=== PATIENT | male | born 1955 | race Caucasian/White ===

== ENCOUNTER 2017-12-15 20:30 | Outpatient (CLI) | payer BC | END 2017-12-15 20:31 | disposition home or self-care (01) | LOC: SLEEPLAB 20:30 | PROVIDERS: ATTEND Family Medicine | DX: G25.81 Restless legs syndrome (principal); G47.33 Obstructive sleep apnea (adult) (pediatric); R53.83 Other fatigue; F41.9 Anxiety disorder, unspecified | CPT/HCPCS: 95810 ==

== ENCOUNTER 2018-02-04 20:30 | Outpatient (CLI) | payer BC | END 2018-02-04 20:31 | disposition home or self-care (01) | LOC: SLEEPLAB 20:30 | PROVIDERS: ATTEND Family Medicine | DX: G47.33 Obstructive sleep apnea (adult) (pediatric) (principal); G25.81 Restless legs syndrome; F41.9 Anxiety disorder, unspecified; E66.9 Obesity, unspecified; R53.83 Other fatigue | CPT/HCPCS: 95811 ==

== ENCOUNTER 2018-10-25 07:08 | Outpatient (CLI) | payer BC ==
--- NOTE | 2018-10-25 09:35 | MRI ---
MRI CERVICAL SPINE: Technique: Multiplanar, multisequence MRI images were obtained of the cervical spine. Indications: Osteoarthritis cervical spine. Neck pain. FINDINGS: Cervical vertebrae maintain normal height and alignment. Vertebral body signal appears normal. Loss o f disc space is noted at C5-6. The other disc spaces are maintained. No significant abnormality at C2 -3. C3-4: No significant abnormality. C4-5: Normal disc bulge and spondylosis. Bilateral foraminal encroachment due to facet and uncinate h ypertrophy. C5-6: Mild disc bulge and spondylosis efface the anterior subarachnoid space. There is no evidence of cord impingement. No significant foraminal stenosis. C6-7: Normal disc bulge and spondylosis. Anterior subarachnoid space is preserved. No significant for aminal stenosis. C7-T1: No significant abnormality. Cervical cord signal is normal. IMPRESSION: Mild degenerative changes of the cervical spine. Loss of disc space and mild posterior disc bulge and spondylosis noted at C5-6 as described. POS: INGRID
== END 2018-10-25 07:09 | disposition home or self-care (01) ==
LOC: BICMRI 07:08
PROVIDERS: ATTEND Orthopaedic Surgery Hand Surgery
DX: M48.02 Spinal stenosis, cervical region (principal); M47.812 Spondylosis without myelopathy or radiculopathy, cervical region; M50.222 Other cervical disc displacement at C5-C6 level
CPT/HCPCS: 72141

== ENCOUNTER 2020-03-16 14:58 | Emergency (ER) | payer BC ==
--- NOTE | 2020-03-16 16:17 | RAD ---
Radiograph left shoulder 3 views: 03/16/2020 HISTORY: 64-year-old male with acute traumatic left shoulder pain from fall FINDINGS: There is no fracture, dislocation, or subluxation. IMPRESSION: Negative.
--- NOTE | 2020-03-16 16:18 | RAD ---
Radiograph pelvis one view: 03/16/2020 HISTORY: 64-year-old male with acute, traumatic pelvic pain after fall FINDINGS: Pelvic ring appears to be intact with no evidence of displaced fracture. No dislocation of the hip mary ints. IMPRESSION: No displaced fracture identified.
--- NOTE | 2020-03-16 16:44 | CT ---
EXAM: LUMBAR CT SCAN WITHOUT IV CONTRAST: History: Injury from a fall. FINDINGS: There is evidence for a minimal anterior superior endplate compression fracture of L1 vertebral body without evidence for retropulsion or associated stenosis. Mild posterior element fracture or evidence for significant malalignment. At L5-S1 there is severe discogenic disease with a prominent grade II anterolisthesis of approximatel y 1.4 cm of L5 on S1 with bilateral pars defects. IMPRESSION: 1. Mild anterior superior endplate compression fracture of L1 without retropulsion and posterior [place] ent involvement. 2. Marked grade II anterolisthesis of L5 on S1 with associated pars defects and considerable disc spa ce narrowing and disc osteophytosis. 3. If the patient has any radicular symptoms, consider non-emergent follow up MRI. Findings discussed with Aury Ruvalcaba in the Emergency Department at 4:08 p.m. Code SAUL POS: KACIE
== END 2020-03-16 16:59 | disposition home or self-care (01) ==
LOC: ERS 14:58
DX: S32.019A Unspecified fracture of first lumbar vertebra, initial encounter for closed fracture (principal); M25.512 Pain in left shoulder; F41.9 Anxiety disorder, unspecified; Z79.899 Other long term (current) drug therapy; W17.89XA Other fall from one level to another, initial encounter
CPT/HCPCS: 72131; 72170

== ENCOUNTER 2020-03-18 10:56 | Outpatient (CLI) | payer BC, OTHER ==
[2020-03-18 13:06] LABS: #Eosinphils 0.5 thou/uL (0.0-0.7); #Neutrophils 6.8 thou/uL (1.40-6.50); %Basophils 0.3 % (0.0-1.0); %Eosinophils 4.5 % (0.0-10.0); %Lymphocytes 19.1 % (21.0-51.0); %Monocytes 10.1 % (0.0-10.0); %Neutrophils 66.1 % (42.0-75.0); Hemoglobin 14.9 g/dL (14.0-18.0); Mean Corpuscular Hemoglobin 30.1 pg (27.0-31.0); Mean Corpuscular Volume 91.1 fL (78.0-98.0); Mean Platelet Volume 6.5 fL (7.4-10.4); Platelet Count 241 thou/uL (130-400); RBC Distribution Width 13.4 % (11.5-14.5); Red Blood Cell (RBC) Count 4.95 mill/uL (4.70-6.10); White Blood Cell (WBC) Count 10.2 thou/uL (4.8-10.8)
[2020-03-18 13:09] LABS: Bacteria/HPF None Seen HPF (None Seen); Bilirubin Negative (Negative); Blood, Urine Negative (Negative); Clarity Clear (Clear); Glucose, Urine (Dipstick) Normal (Negative); Leukocyte Negative Leu/uL (Negative); Nitrite Negative (Negative); Protein, Urine (Dipstick) Negative (Neg-Trace); RBC/HPF 0-3 HPF (0-3); Squamous Epithelial None Seen HPF (0-3); Urobilinogen Normal mg/dL (Less than 2); WBC/HPF 0-3 HPF (0-3)
[2020-03-18 13:34] LABS: Anion Gap 11 mmol/L (10-20); BUN (Urea Nitrogen) 16 mg/dL (8.4-25.7); Calc. Creatinine Clearance 0 mL/min (70-130); Calcium 9.2 mg/dL (7.8-10.44); Carbon Dioxide 22 mmol/L (23-31); Chloride 107 mmol/L (98-107); Estimated GFR-MDRD 78; Glucose 86 mg/dL (80-115); Sodium 136 mmol/L (136-145)
[2020-03-19 11:00] LABS: SARS-CoV-2 MS2 Positive; SARS-CoV-2 N Gene Negative; SARS-CoV-2 S Gene Negative; SARS-CoV-2 orf1ab Negative
== END 2020-03-18 10:57 | disposition home or self-care (01) ==
LOC: LABBT 10:56
PROVIDERS: ATTEND Orthopaedic Surgery Hand Surgery
DX: Z01.818 Encounter for other preprocedural examination (principal); Z11.59 Encounter for screening for other viral diseases; S66.323A Laceration of extensor muscle, fascia and tendon of left middle finger at wrist and hand level, initial encounter
CPT/HCPCS: 80048; 81001; 85025; 87635; 93005; 93010; U0003

== ENCOUNTER → 2020-03-20 | Day surgery (SDC) | payer BC ==
[2020-03-18 11:19] VITALS: BMI 25.8
[~2020-03-20] MED LIST: Dexamethasone 20 MG/5 ML VIAL ONE; EPHEDRINE 25 MG/5 ML SYRINGE ONE; Famotidine/PF 20 mg/2ml Vial ONE; Fentanyl 100 MCG/2 ML VIAL ONE; Ketorolac Tromethamine 30 MG/ML VIAL ONE; Lidocaine 1% PF 5 ML VIAL ONE; Metoclopramide HCl 10 MG/2 ML VIAL ONE; Ondansetron PF 4 MG/2 ML Vial ONE; PHENYLEPHRINE-NS 100 MCG/ML 10 ML SYRINGE ONE; PROPOFOL 200 MG/20 ML VIAL ONE
--- NOTE | 2020-03-23 12:55 | OP ---
DATE OF PROCEDURE: 03/21/2020 PREOPERATIVE DIAGNOSIS: Left middle finger extensor tendon laceration with injury. POSTOPERATIVE DIAGNOSES: Left middle finger extensor tendon laceration with injury. Laceration found to be complete involving the entire centralizing retinaculum at the MP joint on the radial side (extensor penaloza) and approximately 5 mm on the ulnar side of the extensor penaloza. There was a 2 mm gap seen in the EDC central tendon. This was a zone 5 repair. TOURNIQUET TIME: 32 minutes. ESTIMATED BLOOD LOSS: 10 mL. INJECTABLE: 20 mL of 0.5% Marcaine, 10 given before surgery and 10 given afterwards. ANESTHESIA: General augmented by the block given as described above. DESCRIPTION OF PROCEDURE: After successful anesthesia as listed above, limb was prepped and draped. Time-out was done appropriately. We found a shadow of the previous incision which was a sign it had healed on its own at home, but he had lost terminal 15 to 20 degrees of extension and power, had pain with extension passively against stretch. We then extended the incision with the tourniquet inflated and limb exsanguinated 2 cm distal and 2 cm proximal. Exposed the extensor mechanism and found a scar that had formed without much pseudo tendon and we debrided this, we had a 2 mm gap. He also had extensor penaloza laceration that was complete on the radial side and only 5 mm on the ulnar side. First, we repaired the extensor tendon primary injury with four buried [id number] 4-0 Prolene. We used a 4-0 Prolene to repair the retinaculum with a buried [id number] first on the longer radial side laceration and on the short ulnar side. Then, we passively flexed him to 60 degrees, no gap formation seen and when we did a tenodesis effect he had the same amount extension as the other digit at the MP. We deflated the tourniquet. Then, we obtained hemostasis. We closed the incision with interrupted 4-0 nylon in a simple pattern, placed the patient in a bulky dressing and then a palmar 5-inch splint went all the way from the mid forearm out to the nail bed for the middle finger, ring and index finger, and small finger. He left the operating room without evidence of anesthetic or operative complication. Job ID: [id number]
== END ==
LOC: SDC 09:05
PROVIDERS: ATTEND Orthopaedic Surgery Hand Surgery
PROC: 0LR Tendons, Replacement (ICD-10-PCS; principal; 2020-03-20)
DX: S66.323A Laceration of extensor muscle, fascia and tendon of left middle finger at wrist and hand level, initial encounter (principal); K21.9 Gastro-esophageal reflux disease without esophagitis; F41.9 Anxiety disorder, unspecified; E78.5 Hyperlipidemia, unspecified; Z79.899 Other long term (current) drug therapy; Z91.030 Bee allergy status
CPT/HCPCS: J0690; J1100; J1885; J2001; J2405; J2704; J2765; J3010; S0028

== ENCOUNTER 2022-03-04 08:24 | Outpatient (CLI) | payer OTHER, SELFPAY | END 2022-03-04 08:25 | disposition home or self-care (01) | LOC: BICCT 08:24 | PROVIDERS: ATTEND Family Medicine | DX: E78.5 Hyperlipidemia, unspecified (principal) | CPT/HCPCS: 75571 ==

== ENCOUNTER 2023-08-30 02:15 | Emergency (ER) | payer BC, MEDICARE ==
[2023-08-30] MEDS ORDERED: Gabapentin 300 MG CAP ONE (03:35)
== END 2023-08-30 04:00 | disposition home or self-care (01) ==
LOC: ERS 02:15
DX: G25.81 Restless legs syndrome (principal); G47.00 Insomnia, unspecified
CPT/HCPCS: 99283

== ENCOUNTER 2024-01-02 14:11 | Emergency (ER) | payer MEDICARE ==
[~2024-01-02 14:11] MED LIST changes: -Dexamethasone 20 MG/5 ML VIAL ONE; -EPHEDRINE 25 MG/5 ML SYRINGE ONE; -Famotidine/PF 20 mg/2ml Vial ONE; -Fentanyl 100 MCG/2 ML VIAL ONE; +Iopamidol-370 76% 500 ML MDV (1 ML CHARGE) ONE; -Ketorolac Tromethamine 30 MG/ML VIAL ONE; -Lidocaine 1% PF 5 ML VIAL ONE; -Metoclopramide HCl 10 MG/2 ML VIAL ONE; -Ondansetron PF 4 MG/2 ML Vial ONE; -PHENYLEPHRINE-NS 100 MCG/ML 10 ML SYRINGE ONE; -PROPOFOL 200 MG/20 ML VIAL ONE
[2024-01-02 15:08] LABS: #Eosinphils 0.4 thou/uL (0.0-0.7); #Monocytes 0.6 thou/uL (0.11-0.59); #Neutrophils 4.1 thou/uL (1.40-6.50); %Basophils 0.6 % (0.0-1.0); %Eosinophils 5.8 % (0.0-10.0); %Lymphocytes 22.2 % (21.0-51.0); %Monocytes 9.6 % (0.0-10.0); %Neutrophils 61.5 % (42.0-75.0); Hematocrit 37.7 % (42.0-52.0); Hemoglobin 12.1 g/dL (14.0-18.0); Mean Corpuscular HGB CONC 32.1 g/dL (32.0-36.0); Mean Corpuscular Hemoglobin 27.6 pg (27.0-31.0); Mean Corpuscular Volume 86.1 fl (78.0-98.0); Mean Platelet Volume 8.3 fL (7.4-10.4); Platelet Count 300 10x3/uL (130-400); RBC Distribution Width 17.2 % (11.5-14.5); Red Blood Cell (RBC) Count 4.38 mill/uL (4.70-6.10); White Blood Cell (WBC) Count 6.6 10x3/uL (4.8-10.8)
[2024-01-02] MEDS ORDERED: Ketorolac Tromethamine 30 MG (1 mL) VIAL ONE (15:21)
[2024-01-02] MEDS ORDERED: Ondansetron PF 4 MG/2 ML Vial ONE (15:22)
[2024-01-02 15:28] LABS: ALT (SGPT) 24 U/L (8-55); AST (SGOT) 23 U/L (5-34); Albumin 3.9 g/dL (3.4-4.8); Alkaline Phosphatase 73 U/L (40-110); Anion Gap 11 mmol/L (10-20); BUN (Urea Nitrogen) 14 mg/dL (8.4-25.7); Bilirubin, Total 0.4 mg/dL (0.2-1.2); Calc. Creatinine Clearance 0 mL/min (70-130); Calcium 8.7 mg/dL (7.8-10.44); Carbon Dioxide 21 mmol/L (23-31); Chloride 109 mmol/L (98-107); Estimated GFR 82; Globulin 3.6 g/dL (2.4-3.5); Glucose 99 mg/dL (80-115); Lipase 45 U/L (8-78); Potassium 4.1 mmol/L (3.5-5.1); Protein, Total 7.5 g/dL (5.8-8.1); Sodium 137 mmol/L (136-145)
[2024-01-02 15:31] LABS: Troponin I Less than 0.010 ng/mL (< 0.028)
== END 2024-01-02 17:00 | disposition home or self-care (01) ==
LOC: ERS 14:11
DX: K52.9 Noninfective gastroenteritis and colitis, unspecified (principal); R07.9 Chest pain, unspecified
CPT/HCPCS: 36415; 71045; 74177; 80053; 83690; 84484; 85025; 93005; 96374; 96375; J1885; J2405; Q9967

== ENCOUNTER 2024-02-26 11:42 | Outpatient (CLI) | payer MEDICARE ==
[2024-02-26 12:41] LABS: #Basophils 0.07 10x3/uL (0.0-0.2); #Eosinphils 0.48 10x3/uL (0.0-0.5); #Monocytes 0.67 10x3/uL (0.0-1.1); #Neutrophils 4.69 10x3/uL (1.5-8.4); %Basophils 0.9 % (0.0-2.0); %Eosinophils 6.2 % (0.0-6.0); %Lymphocytes 23.3 % (18.0-47.0); %Monocytes 8.6 % (0.0-10.0); %Neutrophils 60.5 % (40.0-75.0); Hemoglobin 13.1 g/dL (13.5-17.5); Mean Corpuscular HGB CONC 32.8 g/dL (32.0-36.0); Mean Corpuscular Hemoglobin 28.7 pg (27.0-33.0); Mean Corpuscular Volume 87.7 fl (81.2-95.1); Mean Platelet Volume 8.4 fl (7.4-10.4); Platelet Count 261 10x3/uL (150-450); RBC Distribution Width 18.9 % (11.5-14.5); Red Blood Cell (RBC) Count 4.56 10x6/uL (4.32-5.72); White Blood Cell (WBC) Count 7.8 10x3/uL (3.5-10.5)
[2024-02-26 12:59] LABS: Anion Gap 10 mmol/L (10-20); BUN (Urea Nitrogen) 20 mg/dL (8.4-25.7); Calc. Creatinine Clearance 0 mL/min (70-130); Calcium 9.4 mg/dL (7.8-10.44); Carbon Dioxide 23 mmol/L (23-31); Chloride 111 mmol/L (98-107); Estimated GFR 82; Glucose 93 mg/dL (80-115); Potassium 4.5 mmol/L (3.5-5.1); Sodium 139 mmol/L (136-145)
== END 2024-02-26 11:43 | disposition home or self-care (01) ==
LOC: LABBT 11:42
PROVIDERS: ATTEND Specialist
DX: Z01.818 Encounter for other preprocedural examination (principal); M79.9 Soft tissue disorder, unspecified
CPT/HCPCS: 71046; 80048; 85025; 93005; 93010

== ENCOUNTER 2024-02-29 08:27 | Day surgery (SDC) | payer MEDICARE ==
[2024-02-26 12:12] VITALS: BMI 25.8
[2024-02-29] MEDS ORDERED: Ketorolac Tromethamine 30 MG (1 mL) VIAL ONE (09:14)
[2024-02-29] MEDS ORDERED: Acetaminophen 500 MG TAB ONE (09:14)
[2024-02-29] MEDS ORDERED: fentaNYL PF 100 MCG/2 ML SYRINGE ONE (10:01)
[2024-02-29] MEDS ORDERED: PROPOFOL 20 ML ONE (10:02)
[2024-02-29] MEDS ORDERED: Lidocaine 1% PF 5 ML VIAL ONE (10:02)
[2024-02-29] MEDS ORDERED: EPINEPHrine 1 MG/ML VIAL ONE (11:08)
[2024-02-29] MEDS ORDERED: Bupivacaine 0.25% HCL 30 ML VIAL ONE (11:08)
[2024-02-29] MEDS ORDERED: Midazolam HCl 2 mg/2 ml Vial ONE (11:15)
[2024-02-29] MEDS ORDERED: Sterile Water 20 ML ONE (11:21)
[2024-02-29] MEDS ORDERED: CEFAZOLIN 1 GM VIAL ONE (11:21)
[2024-02-29] MEDS ORDERED: Dexamethasone 20 MG/5 ML VIAL ONE (11:39)
[2024-02-29] MEDS ORDERED: Ondansetron PF 4 MG/2 ML Vial ONE (11:39)
[2024-02-29] MEDS ORDERED: ePHEDrine Sulfate 50 MG/10 ML VIAL ONE (11:42)
== END 2024-02-29 13:30 | disposition home or self-care (01) ==
LOC: SDC 08:27
PROVIDERS: ATTEND Specialist
PROC: 0JBL0ZZ Excision of Right Upper Leg Subcutaneous Tissue and Fascia, Open Approach (ICD-10-PCS; principal; 2024-02-29)
DX: D17.23 Benign lipomatous neoplasm of skin and subcutaneous tissue of right leg (principal); K21.9 Gastro-esophageal reflux disease without esophagitis; F41.9 Anxiety disorder, unspecified; E78.5 Hyperlipidemia, unspecified; Z98.890 Other specified postprocedural states; Z79.899 Other long term (current) drug therapy; Z91.030 Bee allergy status
CPT/HCPCS: 27337; J0171; 88304; J0665; J0690; J1100; J1885; J2250; J2405; J2704

== ENCOUNTER 2025-08-05 10:23 | Emergency (ER) | payer MEDICARE ==
[2025-08-05] MEDS ORDERED: Boostrix 0.5 ML (Tdap) VIAL (>/=7 yrs of age) ONE (11:27)
[2025-08-05] MEDS ORDERED: Bacitracin 1 PK ONE (12:33)
== END 2025-08-05 12:45 | disposition home or self-care (01) ==
LOC: ERS 10:23
DX: S61.012A Laceration without foreign body of left thumb without damage to nail, initial encounter (principal); W31.2XXA Contact with powered woodworking and forming machines, initial encounter; Z23 Encounter for immunization
CPT/HCPCS: 12001; 90471; 90715

== ENCOUNTER 2025-09-11 15:57 | Emergency (ER) | payer MEDICARE | END 2025-09-11 16:55 | disposition home or self-care (01) | LOC: ERS 15:57 | DX: T16.1XXA Foreign body in right ear, initial encounter (principal); Z79.899 Other long term (current) drug therapy; W44.G1XA Audio device entering into or through a natural orifice, initial encounter | CPT/HCPCS: 69200; 99282 ==